=== PATIENT | female | born 1980 | race Caucasian/White ===

== ENCOUNTER → 2022-07-17 14:53 | Outpatient (CLI) | payer BC, SELFPAY ==
--- NOTE | ~2022-07-17 | XR_ITS ---
XR foot LT min 3V DATE: 07/17/2022 15:22 INDICATION: Acute left foot pain TECHNIQUE: 4 views COMPARISON: None FINDINGS: Mild plantar calcaneal enthesopathy without associated erosive change or periostitis. Mild osteoarthritis at the first metatarsophalangeal joint. No fracture or dislocation, periosteal reaction or bone destruction. 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
== END ==
PROVIDERS: Visit Provider Chiropractor
DX: M77.32 Calcaneal spur, left foot (principal); M19.072 Primary osteoarthritis, left ankle and foot
CPT/HCPCS: 73630